=== PATIENT | male | born 1955 | race Caucasian/White ===

== ENCOUNTER 2023-03-13 09:52 | Emergency (ER) | payer MEDICARE ==
[~2023-03-13] VITALS: Ht 182.9 cm; Wt 95.5 kg
[2023-03-13] MEDS ORDERED: KETOROLAC 30 MG/ML 1ML VIAL IM ONE (11:20)
[2023-03-13 11:34] VITALS: BP 189/91
== END 2023-03-13 11:35 | disposition home or self-care (01) ==
LOC: M ED 09:52
DX: S43.101A Unspecified dislocation of right acromioclavicular joint, initial encounter (principal); W11.XXXA Fall on and from ladder, initial encounter; Y92.009 Unspecified place in unspecified non-institutional (private) residence as the place of occurrence of the external cause
CPT/HCPCS: 73030; 96372; 99284; J1885